=== PATIENT | male | born 1940 | race Caucasian/White ===

== ENCOUNTER → 2020-12-25 | Outpatient (CLI) | payer MEDICARE ==
[~2020-12-25] MED LIST: LIDOCAINE 1%, 10ML ONE
== END | disposition home or self-care (01) ==
LOC: RAD 08:00
PROVIDERS: ATTEND Nurse Practitioner Family
DX: R18.8 Other ascites (principal); I27.20 Pulmonary hypertension, unspecified; I50.9 Heart failure, unspecified; K74.60 Unspecified cirrhosis of liver
CPT/HCPCS: 49083